=== PATIENT | male | born 1965 | race Caucasian/White ===

== ENCOUNTER 2017-02-02 21:54 | Emergency (ER) | payer MEDICAID ==
[~2017-02-02] VITALS: Ht 170.2 cm; Wt 76.5 kg
[2017-02-02 23:04] LABS: HEMOGLOBIN 13.6 g/dL (13.7-18.0)
[2017-02-02 23:13] LABS: BLOOD UREA NITROGEN 12 mg/dL (7-18)
[2017-02-02 23:22] LABS: IS PT STATUS REG ER OR PRE ER? YES
[2017-02-02] MEDS ORDERED: CAPTOPRIL 50 MG TABLET PO ONE (23:30)
[2017-02-03 01:06] VITALS: BP 152/95
== END 2017-02-03 01:26 | disposition home or self-care (01) ==
LOC: ED 23:59
DX: F20.9 Schizophrenia, unspecified (principal); I10 Essential (primary) hypertension; Z72.89 Other problems related to lifestyle
CPT/HCPCS: 36415; 71010; 80048; 80307; 82040; 84484; 85025; 93005; 99285

== ENCOUNTER 2017-04-12 22:59 | Emergency (ER) | payer MEDICAID ==
[~2017-04-12] VITALS: Ht 182.9 cm; Wt 84.9 kg
[2017-04-13] MEDS ORDERED: SODIUM CHLORIDE 0.9% 1,000ML IVBOLUS ONE (00:30)
[2017-04-13 08:03] VITALS: BP 103/57
== END 2017-04-13 08:05 | disposition home or self-care (01) ==
LOC: EDBD 22:59 → MERGE 23:59 → ED 23:59
DX: F10.120 Alcohol abuse with intoxication, uncomplicated (principal)
CPT/HCPCS: 36415; 80307; 96360; 96361; 99285; J7030; 99283

== ENCOUNTER 2017-06-07 08:39 | Emergency (ER) | payer MEDICAID ==
[~2017-06-07] VITALS: Ht 170.2 cm; Wt 67.0 kg
[2017-06-07 09:05] VITALS: BP 169/99
== END 2017-06-07 11:22 | disposition home or self-care (01) ==
LOC: ED 08:51
DX: F20.89 Other schizophrenia (principal)
CPT/HCPCS: 99283

== ENCOUNTER 2017-07-11 21:44 | Emergency (ER) | payer OTHER, MEDICAID ==
[~2017-07-11] VITALS: Ht 172.7 cm; Wt 74.0 kg
[2017-07-11] MEDS ORDERED: LISI-167 PO (22:03)
[2017-07-11] MEDS ORDERED: TAMS-11 PO (22:04)
[2017-07-11 22:11] LABS: HEMATOCRIT 41.7 % (39.2-51.8); HEMOGLOBIN 13.7 g/dL (13.7-18.0); WHITE BLOOD COUNT 6.9 x10^3/uL (3.4-10)
[2017-07-11 22:24] LABS: ASPARTATE AMINO TRANSFERASE 10 U/L (15-37); BLOOD UREA NITROGEN 19 mg/dL (7-18)
[2017-07-12 00:04] VITALS: BP 158/106
== END 2017-07-12 00:09 | disposition home or self-care (01) ==
LOC: ED 22:31
DX: M25.571 Pain in right ankle and joints of right foot (principal); M25.572 Pain in left ankle and joints of left foot; G89.29 Other chronic pain; I10 Essential (primary) hypertension; F20.9 Schizophrenia, unspecified
CPT/HCPCS: 36415; 80053; 85025; 93005; 99285

== ENCOUNTER 2018-01-09 13:04 | Emergency (ER) | payer MEDICAID, OTHER ==
[~2018-01-09] VITALS: Ht 170.2 cm; Wt 81.5 kg
[~2018-01-09 13:04] MED LIST: LISI-167 PO; TAMS-11 PO
[2018-01-09] MEDS ORDERED: ACETAMINOPHEN 500 MG TABLET PO ONE (13:30)
[2018-01-09] MEDS ORDERED: ACETAMINOPHEN 500 MG TABLET ONE (13:48)
[2018-01-09] MEDS ORDERED: SODIUM CHLORIDE 0.9% 1,000ML IVBOLUS ONE (14:00)
[2018-01-09 14:17] LABS: RAPID INFLUENZA A Negative (Negative); RAPID INFLUENZA B Negative (Negative)
[2018-01-09 14:31] LABS: BASOPHILS # (AUTO) 0.04 x10^3/uL (0-0.1); BASOPHILS % (AUTO) 0 % (0-1); EOSINOPHILS # (AUTO) 0.12 x10^3/uL (0-0.4); EOSINOPHILS % (AUTO) 1 % (1-7); LYMPHOCYTES % (AUTO) 12 % (22-44); MD NO; MEAN CORPUSCULAR HEMOGLOBIN 27.8 pg (27.5-34.5); MEAN CORPUSCULAR HGB CONC 33.4 g/dL (33.2-36.2); MEAN CORPUSCULAR VOLUME 83.3 fL (81-97); MEAN PLATELET VOLUME 9.7 fL (7.4-10.4); MONOCYTES # (AUTO) 0.71 x10^3/uL (0.2-0.8); MONOCYTES % (AUTO) 6 % (2-9); NEUTROPHILS % (AUTO) 81 % (42-75); PLATELET COUNT 200 x10^3/uL (130-400); RED BLOOD COUNT 5.51 x10^6/uL (4.38-5.82); RED CELL DISTRIBUTION WIDTH 16.3 % (9.4-14.8)
[2018-01-09 14:43] LABS: ALBUMIN 3.7 g/dL (3.4-5.0); ANION GAP 8 mmol/L (5-15); CALCIUM 8.5 mg/dL (8.5-10.1); CHLORIDE 107 mmol/L (98-107); CREATININE 0.97 mg/dL (0.7-1.3)
[2018-01-09] MEDS ORDERED: OMNIPAQUE 350 MG/ML, 100ML BOTTLE ONE (15:38)
[2018-01-09 16:48] VITALS: BP 102/65
== END 2018-01-09 16:52 | disposition home or self-care (01) ==
LOC: ED 15:00
DX: J20.9 Acute bronchitis, unspecified (principal); J84.10 Pulmonary fibrosis, unspecified
CPT/HCPCS: 36415; 71046; 71275; 80048; 82040; 85025; 87400; 93005; 96360; 96361; 99285; J7030; Q9967

== ENCOUNTER 2018-09-11 17:11 | Emergency (ER) | payer MEDICAID ==
[~2018-09-11] VITALS: Ht 170.2 cm; Wt 74.0 kg
[2018-09-11 17:14] VITALS: BP 160/90
== END 2018-09-11 19:29 | disposition home or self-care (01) ==
LOC: ED 19:23
DX: F10.129 Alcohol abuse with intoxication, unspecified (principal); I10 Essential (primary) hypertension; G89.29 Other chronic pain; M54.9 Dorsalgia, unspecified; F17.200 Nicotine dependence, unspecified, uncomplicated
CPT/HCPCS: 99283

== ENCOUNTER 2018-10-03 11:34 | Emergency (ER) | payer MEDICAID ==
[~2018-10-03] VITALS: Ht 170.2 cm; Wt 80.0 kg
[2018-10-03 13:37] VITALS: BP 164/93
== END 2018-10-03 14:44 | disposition home or self-care (01) ==
LOC: ED 12:40
DX: T68.XXXA Hypothermia, initial encounter (principal); W93.8XXA Exposure to other excessive cold of man-made origin, initial encounter; I10 Essential (primary) hypertension; F20.9 Schizophrenia, unspecified
CPT/HCPCS: 99283